=== PATIENT | female | born 1990 | race Caucasian/White ===

== ENCOUNTER 2016-07-02 05:27 | Inpatient (IN) | payer OTHER ==
[~2016-07-02 05:27] MED LIST: Citric Acid/Sodium Citrate Solution 30 ML Cup ONE; Citric Acid/Sodium Citrate Solution 30 ML Cup PO ONE; Lactated Ringers 2,000 ML ONE; Metoclopramide 10 MG/2 ML SDV IVPUSH ONE; Metoclopramide 10 MG/2 ML SDV ONE; Sodium Chloride 0.9% 10 ML Syringe FLUSH PRN; ceFAZolin 2 GM in Premix Bag 1 BAG IV ONE
[2016-07-02] MEDS: Lactated Ringers 1,000 ML IV SCH ×2 (06:20→06:58)
[2016-07-02] MEDS ORDERED: Pneumococcal Polyvalent-23 Vaccine 0.5 ML SDV IM ONE (06:25)
[2016-07-02] MEDS ORDERED: ceFAZolin 2 GM in Premix Bag 1 BAG IV ONE (06:45)
[2016-07-02] MEDS ORDERED: Citric Acid/Sodium Citrate Solution 30 ML Cup PO ONE (06:45)
[2016-07-02] MEDS ORDERED: Metoclopramide 10 MG/2 ML SDV IVPUSH ONE (06:45)
[2016-07-02] MEDS ORDERED: Bupivacaine 0.5% 30 ML SDV ONE (06:49)
[2016-07-02] MEDS ORDERED: Morphine PF 10 MG/10 ML SDV ONE (06:59)
--- NOTE | 2016-07-02 06:59 | HP ---
DATE OF ADMISSION: 07/02/2016 ADMISSION DIAGNOSES: Term intrauterine at 39 and 0/7 weeks gestational age, history of previous section, desire for repeat section. HISTORY OF PRESENT ILLNESS: The patient is a 25-year-old 4, para 2-0-1-2 white female, with an ALE of 07/09/2016, who was admitted at 39 and 0/7 weeks for elective repeat section. She has had 2 previous sections. With first one being done for failure to progress. Second one was a repeat section. The patient also had a demise. She is admitted for elective repeat section. The procedure, risks, benefits, options for care and followup were discussed in detail with the patient. She appears to understand and wishes to proceed. Consent is signed. COURSE: The patient is a 4, para 2-0-1-2. Her last menstrual period was 09/23/2015. Her is dated with an early ultrasound, which placed her due date at 07/09/2016 and supported by ultrasounds done on 12/01/2015 and 02/20/2016. She had her first visit at 8 weeks and 3 days on 12/01/2015. She was seen on a very regular basis during the course of . Weight increased from 191.6 to 210 pounds for approximately an 18 pound weight gain. Her fundal height growth was appropriate. Vital signs are stable throughout the course. PAST OBSTETRIC HISTORY: Includes cycles are somewhat less than regular. Last menstrual period somewhat uncertain at 09/23/2015. Her pregnancies include the followin. Male born 09/23/2011, at 41 weeks' gestational age after 24 hours of labor. Baby weighed 9 pounds 2 ounces-was [facility] at [facility] by primary section for failure to progress. Child's name is Josh. 2. Male born 04/23/2013, at 40 weeks' gestational age-8 pounds of weight. Repeat section. Child's name is Rey. course was positive for some anxiety. She declined genetic evaluation. She also had some depression. She had previous bout of contractions and concern for labor and was evaluated with a fibronectin assay, which was negative. The patient has a history of genital HSV, but did not have any outbreaks during the course of the . She is on valacyclovir 1 tablet-500 mg-twice daily. LABORATORY TESTING: In shows blood to be A positive. Negative antibody screen. Platelets at first visit were 199. She is rubella immune. RPR is nonreactive. Hepatitis B and HIV assays were negative. Her Chlamydia and gonorrhea assays were negative. Her 1-hour GTT was normal at 122. Platelets second trimester were 187. Hemoglobin was 12.2. Platelets on 04/09/2016, were 187. Group B strep screen was negative. ALLERGIES: Animal dander-no known drug allergies noted. CURRENT MEDICATIONS: 1. Acyclovir 500 mg p.o. b.i.d. for prophylaxis for HSV. 2. ProAir HFA aerosol inhaler 1 to 2 puffs q.4-6 hours p.r.n. for asthma. 3. vitamins daily. 4. Vitamin D 2000 units oral tablet 1 tablet daily. 5. Symbicort aerosol inhaler 2 puffs twice a day-rinse mouth after use. PAST MEDICAL HISTORY: 1. 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 2. depression with 2nd was on medications. 3. Frequent UTIs. 4. Eczema, hidradenitis, keratosis pilaris. 5. 6. Exercise-induced and seasonal allergy related asthma. PAST SURGICAL HISTORY: 1. x2 in 2011 and 2012. 2. [place] tooth extraction. FAMILY HISTORY: Mother has type 1 diabetes. Dad is alive, but is a smoker. One brother is alive and well. Maternal grandmother is alive, but with some fractures. Maternal grandfather secondary to RI at age 60. Paternal grandmother is alive, but with heart disease and is status post stent placement. Paternal grandfather . There is no bleeding, blood clotting, anesthesia or asthma problems in the family. No noted either. SOCIAL HISTORY: The patient is . is Richard. 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 They live in [place], [place]. She does not use any significant amounts of alcohol, drugs, or tobacco. REVIEW OF SYSTEMS: GENERAL: The patient has no concerns. Baby has been active. HEENT: Vision and hearing-no concerns. CARDIOVASCULAR: No chest pain, or exercise intolerance noted. RESPIRATORY: No shortness of breath or exercise intolerance noted. BREASTS: changes only. GI: Normal diet, bowel activity, no diarrhea, constipation, blood in the stool or mucus in the stool. : changes only. EXTREMITIES AND MUSCULOSKELETAL: No joint swelling, decreased range of movement or other problems noted. NEUROLOGICAL: No deficits noted. PHYSICAL EXAMINATION: VITAL SIGNS: On last evaluation in clinic on 07/01/2016, showed blood pressure 104/68, weight was 210, heart rate was 136. Her pre gravid weight was 191 per patient's history. Height is 5 feet 5 inches. Body mass index initially was 31.8. Weight gain during the course of the was approximately 18 to 19 pounds. GENERAL: The patient is a well-developed, well-nourished, pleasant, white female, in no acute distress. SKIN: Warm and dry without lesions. LUNGS: Clear with good breath sounds in all lung cornejo. CARDIOVASCULAR: Shows regular rate and rhythm. BREAST: Exam was done within first part of last year and was considered normal. ABDOMEN: Protuberant with , with fundal height of 38 cm. Baby in a vertex presentation. : Cervical exam last done on 06/07/2006, shows cervix to be 1 cm, 50% effaced, -3 station, mid position, soft. EXTREMITIES AND NEUROLOGICAL: Grossly within normal limits. ASSESSMENT: 1. Term intrauterine at 39 and 0/7 weeks gestational age upon admission for elective repeat section. The patient has had 2 previous section and desires repeat. The procedure, risks, benefits, alternatives of care including attempt at were all discussed in detail with the patient. She appears to understand and wishes to proceed. 2. The patient is in need of an MMR . 3. The patient has not had flu vaccination. 4. Her blood is A positive. 5. The patient plans to nurse. 6. Spinal block for anesthesia. PLAN: 1. Repeat lower segment transverse section through Pfannenstiel skin incision under spinal block. Procedure, risks, benefits, alternative and care, and followup were discussed in detail with the patient. She appears to understand, wishes to proceed and a consent is signed. 2. DVT prophylaxis with SCDs. 3. Infection prophylaxis with Ancef 2 g IV preop. 4. CBC, type and screen for preop evaluation. MMODAL /[id number]
[2016-07-02] MEDS ORDERED: Oxytocin 10 Units/1 ML SDV ONE (07:00)
[2016-07-02] MEDS ORDERED: Ondansetron 4 MG/2 ML SDV ONE (07:00)
--- NOTE | 2016-07-02 07:07 | PCM.PREANE ---
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 Respiratory: Reports: no symptoms Cardiovascular: Reports: no symptoms GI: Reports: no symptoms Other: Reports: none - PHYSICAL ASSESSMENT O2 Sat by Pulse Oximetry: 97 RR: 16 Vital Signs: Last Vital Signs Temp 37.3 C 07/02/16 06:21 Pulse 86 07/02/16 06:21 Resp 16 07/02/16 06:21 BP 122/69 07/02/16 06:21 Pulse Ox 97 07/02/16 06:21 Height: 1.65 m Weight: 95.254 kg NPO Status Date: 07/01/16 NPO Status Time: 10:30 ASA Class: 2 Mental Status: alert & oriented x3 Airway Class: Mallampati = 1 Dentition: Reports: normal dentition Thyro-Mental Finger Breadths: 3 Mouth Opening Finger Breadths: 5 ROM/Head Extension: full Respiratory Status: lungs clear to auscultation bilaterally Cardiovascular Status: regular rate & rhythm, normal S1, S2, no murmur, blood pressure WNL - LAB Values: Labs Reviewed - ALLERGIES Allergies/Adverse Reactions: Allergies Allergy/AdvReac Type Severity Reaction Status Date / Time cat dander Allergy Cough Verified 07/16/15 21:26 - BLOOD Blood Available: Yes - ANESTHESIA PLAN Medication Ordered: Antacids Preop Beta Flavio: No Anesthesia Type Planned: spinal - ACKNOWLEDGEMENTS Pt an appropriate candidate for the planned anesthesia: Yes Alternatives and risks of anesthesia discussed w pt/guardian: Yes Pt/Guardian understands and agree with anesthesia plan: Yes PreAnesthesia Questionnaire - Past Health History Medical/Surgical History: Denies Medical/Surgical History HEENT History: Reports: None, Other (see below) Other HEENT History: wears glasses Cardiovascular History: Reports: None Respiratory History: Reports: Asthma, Other (see below) Other Respiratory History: cat allergy uses inhaler. 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 breaks, see H&P - Past Surgical History Cardiovascular Surgical History: Reports: None Neurological Surgical History: Reports: None Dermatological Surgical History: Reports: None - SUBSTANCE USE Smoking Status *Q: Former Smoker Tobacco Use Within Last Twelve Months: Cigarettes Days Per Week of Alcohol Use: 1 Number of Drinks Per Day: 1 Total Drinks Per Week: 1 Recreational Drug Use History: No - CURRENT (IN HOUSE) MEDS Current Meds: Current Medications Lactated Ringer's (Ringers, Lactated) 1,000 mls @ 125 mls/hr IV ASDIRECTED [facility] Last Admin: 07/02/16 06:58 Dose: 125 mls/hr Oxytocin/Lactated Ringer's (Pitocin In Lr 10 Units/1,000 Ml) 10 units in 1,000 mls @ 100 mls/hr IV ASDIRECTED [facility] PRN Reason: Protocol Cefazolin Sodium/Dextrose 2 gm (/ Premix) 50 mls @ 100 mls/hr IV ONETIME ONE Stop: 07/02/16 07:14 Sodium Chloride (Saline Flush) 10 ml FLUSH ASDIRECTED PRN PRN Reason: Keep Vein Open Discontinued Medications Bupivacaine HCl (Marcaine 0.5%) Confirm Administered Dose 30 ml .ROUTE .STK-MED ONE Stop: 07/02/16 06:50 Citric Acid/Sodium Citrate (Bicitra Solution) 30 ml PO ONETIME ONE Stop: 07/01/16 21:11 Citric Acid/Sodium Citrate (Bicitra Solution) Confirm Administered Dose 30 ml .ROUTE .STK-MED ONE Stop: 07/02/16 03:14 Last Admin: 07/02/16 06:20 Dose: Not Given Citric Acid/Sodium Citrate (Bicitra Solution) 30 ml PO ONETIME ONE Stop: 07/02/16 06:46 Cefazolin Sodium/Dextrose 2 gm (/ Premix) 50 mls @ 100 mls/hr IV ONETIME ONE Stop: 07/01/16 21:39 Lactated Ringer's (Ringers, Lactated) Confirm Administered Dose 2,000 mls @ as directed .ROUTE .STK-MED ONE Stop: 07/02/16 03:15 Last Admin: 07/02/16 06:20 Dose: Not Given Metoclopramide HCl (Reglan) 10 mg IVPUSH ONETIME ONE Stop: 07/01/16 21:11 Metoclopramide HCl (Reglan) Confirm Administered Dose 10 mg .ROUTE .STK-MED ONE Stop: 07/02/16 03:15 Last Admin: 07/02/16 06:20 Dose: Not Given Metoclopramide HCl (Reglan) 10 mg IVPUSH ONETIME ONE Stop: 07/02/16 06:46 Morphine Sulfate (Duramorph Pf) Confirm Administered Dose 10 mg .ROUTE .STK-MED ONE Stop: 07/02/16 07:00 Ondansetron HCl (Zofran) Confirm Administered Dose 4 mg .ROUTE .STK-MED ONE Stop: 07/02/16 07:01 Oxytocin (Pitocin) Confirm Administered Dose 20 unit .ROUTE .STK-MED ONE Stop: 07/02/16 07:01 Pneumococcal Polyvalent Vaccine (Pneumovax 23) 0.5 ml IM .ONCE ONE Stop: 07/02/16 06:26
[2016-07-02] MEDS ORDERED: ePHEDrine/Normal Saline 25 MG/5 ML Syringe ONE (08:06)
[2016-07-02] MEDS ORDERED: OXYTOCIN IV SCH (08:15)
[2016-07-02] MEDS ORDERED: LACTATED RINGERS IV SCH (08:15)
[2016-07-02] MEDS ORDERED: Lactated Ringers 1,000 ML ONE ×2 (08:30)
[2016-07-02] MEDS ORDERED: Ketorolac 30 MG/ML SDV ONE (08:41)
--- NOTE | 2016-07-02 08:51 | PCM.POSTAN ---
POST ANESTHESIA ASSESSMENT - MENTAL STATUS Mental Status: alert - VITAL SIGNS Pulse Rate: 80 SaO2: 98 Resp Rate: 16 Blood Pressure: 107/57 Temperature: 37.3 C - RESPIRATORY Respiratory Status: respiratory rate WNL, airway patent, O2 saturation stable - CARDIOVASCULAR CV Status: pulse rate WNL, blood pressure stable - GASTROINTESTINAL GI Status: no symptoms - PAIN Pain Score: 0 - POST OP HYDRATION Hydration Status: adequate & stable - OBSERVATIONS Free Text/Narrative:: uneventful spinal anesthetic, patient happy with experience and thankful to staff for best spinal experience yet
[2016-07-02] MEDS ORDERED: diphenhydrAMINE 50 MG/ML SDV IVPUSH PRN ×2 (08:52→10:11)
[2016-07-02] MEDS ORDERED: Ondansetron 4 MG/2 ML SDV IVPUSH PRN (08:52)
--- NOTE | 2016-07-02 08:53 | PCM.OPNOTE ---
- General Post-Op/Procedure Note Date of Surgery/Procedure: 07/02/16 Operative Procedure(s): repeat lower uterine segment transverse section through Pfannenstiel skin incision Findings: baby is in vertex presentation, clear amniotic fluid. Placenta was on the posterior wall. Ovaries tubes and uterus appeared very normal and consistent with term . Cervix was 2 cm dilated and-adequate to allow egress of blood. Apgars were 9 and 9. Female born at 0809 hours. Weight was 7 lbs. 13 oz. Placenta delivered in a Reva presentation with expression. Umbilical cord had 3 vessels. Estimated blood loss was 500 cc. Pre Op Diagnosis: 39-1/7 week intrauterine , history of previous sections x2 with desire for repeat section Post-Op Diagnosis: Same with delivery of a viable 7 lbs. 13 oz. with Apgars of 9 and 9 at 0809 hours on 07/02/2016 Anesthesia Technique: Spinal Other Anesthesia Type: Marcaine 0.5%-20 cc locally in the Pfannenstiel incision Primary Surgeon: Rudolph Medina Secondary Surgeon: Jewel Baron Anesthesia Provider: Doreen Huang Fluid Replacement, Intraop: 1,800 Output, Urine Amount: 350 EBL in mLs: 500 Drain/Tube Comments:: Indwelling bladder catheter Complications: None Condition: Good Free Text/Narrative:: Intake & Output 07/01/16 07/02/16 07/02/16 22:59 06:59 14:59 Intake Total 1000 Balance 1000 surgeon duration: 24 minutes Consultations: None Specimens: None Procedure: Patient was transferred the room and placed in a sitting position. Spinal anesthesia was administered. After adequate anesthesia patient was placed in a supine position with a wedge under her right side to facilitate left lateral positioning. The patient was prepped and draped in usual fashion after [place] catheter was placed. The anesthetic was checked and found to be adequate. Marcaine 0.5%-20 cc was infiltrated into the section incision site. The Pfannenstiel skin incision was then made carried down to skin subcutaneous and fascial layers. The fascia was then undermined superiorly and inferiorly to allow for adequate operating room. The recti muscles were midline and preperitoneal fat was bluntly dissected. Peritoneal cavity was entered longitudinally. The vesicouterine peritoneum was then incised transversely and bladder flap was developed. Myometrium was incised transversely to the level of the amniotic sac. This incision was extended bilaterally in a blunt fashion. The amniotic sac was then ruptured resulting clear amniotic fluid. A hand is placed into the lower uterine segment and the baby's head was brought forth through the incision. The baby was completely delivered using with fundal pressure in a routine fashion. The nose and mouth were bulb suctioned. Baby's cord was clamped x2 cut and baby was handed off to attending credit collections analyst Dr. Paula. Placenta was expressed after cord blood was obtained. Uterus was then exteriorized to allow for easier closure. The cervix was assessed and found to be dilated adequately to allow egress of blood. The uterus was closed in 2 layers. The first layer a running locked suture of 0 Monocryl, the second layer a running locked vertical mattress suture of 0 Monocryl. small bleeder at a rate and the incision was controlled with a short running suture of 0 Monocryl. Hemostasis confirmed at this time. Sponge, instrument, needle counts are correct. The uterus was returned to the abdominal cavity and lateral gutters were cleared of blood. Once again sponge, needle counts are correct. The anterior abdominal wall was closed with a #1 PDS suture from angle to angle. The subcutaneous area was found to be free of any bleeders. Skin was closed with a running subcuticular stitch of 3-0 Monocryl in a vertical mattress suture fashion using a Maikol needle. It was further approximated with Dermabond Prineo skin mesh/glue. It should be noted that patient received 2 g of Ancef preoperatively for infection prophylaxis and had Pitocin infused after delivery of the placenta to facilitate uterine contraction. She also had sequential compression stockings in place for DVT prophylaxis.
[2016-07-02] MEDS ORDERED: Meperidine PF 50 MG/ML Syringe IVPUSH PRN (10:00)
[2016-07-02] MEDS ORDERED: ePHEDrine 50 MG/ML SDV IVPUSH PRN (10:11)
[2016-07-02] MEDS ORDERED: Dextrose 5%-Lactated Ringers 1,000 ML IV SCH (10:11)
[2016-07-02] MEDS ORDERED: Ondansetron 4 MG/2 ML SDV IV PRN (10:11)
[2016-07-02] MEDS ORDERED: Dextrose 5%-0.45% NaCl 1,000 ML IV SCH (10:11)
[2016-07-02] MEDS ORDERED: Lanolin 100% Cream 7 GM Tube TOP PRN (10:11)
[2016-07-02] MEDS ORDERED: Naloxone 0.4 MG/ML SDV IVPUSH PRN (10:11)
[2016-07-02] MEDS: Docusate Sodium 100 MG Cap PO PRN ×2 (11:25→22:38)
[2016-07-02] MEDS: Simethicone 80 MG Tab.Chew PO PRN ×2 (12:56→22:38)
[2016-07-02] MEDS: Ibuprofen 800 MG Tab PO SCH ×2 (14:52→22:38)
[2016-07-03] MEDS: Acetaminophen/oxyCODONE 325-5 MG Tab PO PRN ×4 (04:46→20:12)
--- NOTE | 2016-07-03 06:09 | PCM.SN ---
- Free Text/Narrative Note: The patient is doing well as far and. Has some discomfort. Average lochia. Nursing was going well. Patient is afebrile, vital signs are stable. Lungs are clear with good breath sounds in all cornejo. Cardiovascular exam shows regular rate. Abdomen is soft, uterus is just below the umbilicus. Incision appears to be healing well. Extremities show minimal edema. Assessment: Post operative day one doing well. Plan: Routine cares. Home tomorrow. CBC today.
[2016-07-03] MEDS: Ibuprofen 800 MG Tab PO SCH ×3 (06:51→23:17)
[2016-07-03] MEDS: Docusate Sodium 100 MG Cap PO PRN (13:06)
[2016-07-03] MEDS: Simethicone 80 MG Tab.Chew PO PRN ×2 (13:48→20:12)
[2016-07-04] MEDS: Simethicone 80 MG Tab.Chew PO PRN (04:35)
[2016-07-04] MEDS: Acetaminophen/oxyCODONE 325-5 MG Tab PO PRN ×2 (04:35→11:47)
[2016-07-04] MEDS: Docusate Sodium 100 MG Cap PO PRN (04:35)
[2016-07-04] MEDS: Ibuprofen 800 MG Tab PO SCH ×2 (06:41→14:50)
--- NOTE | 2016-07-04 08:25 | PCM.DCSUM1 ---
Discharge Summary - Hospital Course Free Text/Narrative:: Alli is a 25-year-old 3 now para 3003 white female who is admitted on 07/02/2016 at 39-1/7 weeks gestational age for elective repeat section. She had 2 previous sections and desired repeat section. Please see admission history and physical and operative report. she delivered on the morning of 07/02/2016. She delivered the baby in a vertex presentation, clear amniotic fluid. Placenta was on the posterior wall. Ovaries tubes and uterus appeared very normal and consistent with term . Cervix was 2 cm dilated and-adequate to allow egress of blood. Apgars were 9 and 9. Female infant born at 0809 hours. Weight was 7 lbs. 13 oz. Placenta delivered in a Reva presentation with expression. Umbilical cord had 3 vessels. Estimated blood loss was 500 cc. Postoperatively patient was done well. She is nursing without problems. Ambulating well, has minimal lochia. Abdominal pain is well controlled with ibuprofen and Percocet. Her vital signs were stable and she has been afebrile. She is desiring to be discharged today. - Discharge Data Discharge Date: 07/04/16 Discharge Disposition: Home, Self-Care 01 Condition: Good - Patient Summary/Data Operative Procedure(s) Performed: repeat lower uterine segment transverse section through Pfannenstiel skin incision - Patient Instructions Diet: Regular Diet as Tolerated (Nursing diet was increased calcium and calories as discussed with the patient.) Activity: As Tolerated (No intercourse or tampons until seen back. No lifting greater than 15 pounds, driving a car or baths x1 week. Patient may shower.) Driving: Do Not Drive Showering/Bathing: May Shower Wound/Incision Care: Keep Operative Site/Wound Site Clean and Dry Notify Provider of: Fever, Increased Pain, Swelling and Redness, Drainage, Nausea and/or Vomiting - Discharge Plan Home Medications: Home Meds Albuterol [Proair HFA] 1 - 2 puff PO ASDIRECTED PRN 07/02/16 [History] Budesonide/Formoterol [Symbicort 160-4.5 MCG] 1 puff INH BID 07/02/16 [History] Cholecalciferol (Vitamin D3) [Vitamin D3] 2,000 unit PO DAILY 07/02/16 [History] PNV95/Ferrous Fumarate/FA [ Tablet] 1 each PO DAILY 07/02/16 [History] Acetaminophen/oxyCODONE [Percocet 325-5 MG] 2 tab PO Q4H PRN #30 tablet [Rx] Ibuprofen [IJD: Ibuprofen] 600 mg PO Q4H PRN #30 tablet 07/04/16 [Rx] Patient Handouts: Smoking Cessation, Tips for Success, [id number], Smoking Hazards Referrals: Rudolph Medina MD [Physician] - (Return to clinic-Dr. Medina-4 weeks-[facility] [place]) - Discharge Summary/Plan Comment DC Time >30 min.: No Discharge Summary/Plan Comment: Discharge instructions: 1. Discharge home 2. Regular, high-fiber, nursing diet. Activity and followup discussed in detail. 3. Precautions given concern increased pain, bleeding, temperature, signs/ symptoms of DVT/PE. 4. Medications per home medication was presented, discussed with and given to the patient. 5. Return to clinic-Dr. Medina-[facility] [place]-4 weeks. Diagnosis: 1. 39-1/7 week intrauterine -delivered 2. History of previous section x2-desire for repeat section Condition: Good - Patient Data Vitals - Most Recent: Last Vital Signs Temp 36.7 C 07/04/16 04:00 Pulse 77 07/04/16 04:00 Resp 16 07/04/16 04:00 BP 117/63 07/04/16 04:00 Pulse Ox 97 07/04/16 04:00 Weight - Most Recent: 95.254 kg Med Orders - Current: Current Medications Diphenhydramine HCl (Benadryl) 25 mg IVPUSH Q6H PRN PRN Reason: Itching or Nausea Docusate Sodium (Colace) 100 mg PO Q12H PRN PRN Reason: Constipation Last Admin: 07/04/16 04:35 Dose: 100 mg Emollient Ointment (Lansinoh Hpa) 0 gm TOP ASDIRECTED PRN PRN Reason: Sore Nipples Ephedrine Sulfate (Ephedrine Sulfate) 5 mg IVPUSH SEECOMMENT PRN PRN Reason: Other Dextrose/Sodium Chloride (Dextrose 5%-1/2 Ns) 1,000 mls @ 125 mls/hr IV ASDIRECTED RAJI Last Admin: 07/02/16 16:16 Dose: 125 mls/hr Ibuprofen (Motrin) 800 mg PO Q8H RAJI Last Admin: 07/04/16 06:41 Dose: 800 mg Naloxone HCl (Narcan) 0.1 mg IVPUSH SEECOMMENT PRN PRN Reason: Respiratory Depression Ondansetron HCl (Zofran) 4 mg IV Q4H PRN PRN Reason: Nausea/Vomiting Last Admin: 07/02/16 10:49 Dose: 4 mg Oxycodone/Acetaminophen (Percocet 325-5 Mg) 2 tab PO Q4H PRN PRN Reason: Pain (moderate 4-6) Last Admin: 07/04/16 04:35 Dose: 1 tab Simethicone (Simethicone) 80 mg PO Q6H PRN PRN Reason: Gas Last Admin: 07/04/16 04:35 Dose: 80 mg Discontinued Medications Bupivacaine HCl (Marcaine 0.5%) Confirm Administered Dose 30 ml .ROUTE .STK-MED ONE Stop: 07/02/16 06:50 Last Admin: 07/02/16 08:04 Dose: 20 ml Citric Acid/Sodium Citrate (Bicitra Solution) 30 ml PO ONETIME ONE Stop: 07/01/16 21:11 Last Admin: 07/02/16 07:06 Dose: 30 ml Citric Acid/Sodium Citrate (Bicitra Solution) Confirm Administered Dose 30 ml .ROUTE .STK-MED ONE Stop: 07/02/16 03:14 Last Admin: 07/02/16 06:20 Dose: Not Given Citric Acid/Sodium Citrate (Bicitra Solution) 30 ml PO ONETIME ONE Stop: 07/02/16 06:46 Last Admin: 07/02/16 10:19 Dose: Not Given Diphenhydramine HCl (Benadryl) 25 mg IVPUSH Q6H PRN PRN Reason: pruritis Stop: 07/02/16 20:00 Ephedrine Sulfate (Ephedrine In Ns) Confirm Administered Dose 25 mg .ROUTE .STK- MED ONE Stop: 07/02/16 08:07 Lactated Ringer's (Ringers, Lactated) 1,000 mls @ 125 mls/hr IV ASDIRECTED [facility] Last Admin: 07/02/16 06:58 Dose: 125 mls/hr Oxytocin/Lactated Ringer's (Pitocin In Lr 10 Units/1,000 Ml) 10 units in 1,000 mls @ 100 mls/hr IV ASDIRECTED [facility] PRN Reason: Protocol Cefazolin Sodium/Dextrose 2 gm (/ Premix) 50 mls @ 100 mls/hr IV ONETIME ONE Stop: 07/01/16 21:39 Last Admin: 07/02/16 10:18 Dose: Not Given Lactated Ringer's (Ringers, Lactated) Confirm Administered Dose 2,000 mls @ as directed .ROUTE .STK-MED ONE Stop: 07/02/16 03:15 Last Admin: 07/02/16 06:20 Dose: Not Given Cefazolin Sodium/Dextrose 2 gm (/ Premix) 50 mls @ 100 mls/hr IV ONETIME ONE Stop: 07/02/16 07:14 Last Admin: 07/02/16 10:18 Dose: Not Given Lactated Ringer's (Ringers, Lactated) Confirm Administered Dose 1,000 mls @ as directed .ROUTE .STK-MED ONE Stop: 07/02/16 08:31 Lactated Ringer's (Ringers, Lactated) Confirm Administered Dose 1,000 mls @ as directed .ROUTE .STK-MED ONE Stop: 07/02/16 08:31 Dextrose/Lactated Ringer's (Dextrose 5%-Lactated Ringers) 1,000 mls @ 125 mls/ hr IV ASDIRECTED [facility] Stop: 07/02/16 18:10 Last Admin: 07/02/16 10:25 Dose: 125 mls/hr Ketorolac Tromethamine (Toradol) Confirm Administered Dose 30 mg .ROUTE .STK- MED ONE Stop: 07/02/16 08:42 Meperidine HCl (Demerol) 12.5 mg IVPUSH ONETIME PRN PRN Reason: shivering Stop: 07/03/16 10:01 Metoclopramide HCl (Reglan) 10 mg IVPUSH ONETIME ONE Stop: 07/01/16 21:11 Last Admin: 07/02/16 07:06 Dose: 10 mg Metoclopramide HCl (Reglan) Confirm Administered Dose 10 mg .ROUTE .STK-MED ONE Stop: 07/02/16 03:15 Last Admin: 07/02/16 06:20 Dose: Not Given Metoclopramide HCl (Reglan) 10 mg IVPUSH ONETIME ONE Stop: 07/02/16 06:46 Last Admin: 07/02/16 10:19 Dose: Not Given Morphine Sulfate (Duramorph Pf) Confirm Administered Dose 10 mg .ROUTE .STK-MED ONE Stop: 07/02/16 07:00 Ondansetron HCl (Zofran) Confirm Administered Dose 4 mg .ROUTE .STK-MED ONE Stop: 07/02/16 07:01 Ondansetron HCl (Zofran) 4 mg IVPUSH ONETIME PRN PRN Reason: Nausea/Vomiting Stop: 07/02/16 20:00 Oxytocin (Pitocin) Confirm Administered Dose 20 unit .ROUTE .STK-MED ONE Stop: 07/02/16 07:01 Pneumococcal Polyvalent Vaccine (Pneumovax 23) 0.5 ml IM .ONCE ONE Stop: 07/02/16 06:26 Sodium Chloride (Saline Flush) 10 ml FLUSH ASDIRECTED PRN PRN Reason: Keep Vein Open *Q Meaningful Use (DIS) - VTE *Q VTE Criteria *Q: - Stroke *Q Stroke Criteria *Q: - AMI *Q AMI Criteria *Q:
--- NOTE | 2016-07-04 10:56 | PCM48HPAN ---
Post Anesthesia Note - EVALUATION WITHIN 48HRS OF ANESTHETIC Vital Signs in Normal Range: Yes Patient Participated in Evaluation: Yes Respiratory Function Stable: Yes Airway Patent: Yes Cardiovascular Function Stable: Yes Hydration Status Stable: Yes Pain Control Satisfactory: Yes Nausea and Vomiting Control Satisfactory: Yes Mental Status Recovered: Yes
[2016-07-04 14:16] VITALS: BP 123/80
== END 2016-07-04 15:30 | disposition home or self-care (01) | DRG 766 ==
LOC: JD.OB 05:27
PROVIDERS: ADMIT Obstetrics & Gynecology; ATTEND Obstetrics & Gynecology
PROC: 10D00Z1 Extraction of Products of Conception, Low, Open Approach (ICD-10-PCS; principal; 2016-07-02)
PROC: 3E0234Z Introduction of Serum, Toxoid and Vaccine into Muscle, Percutaneous Approach (ICD-10-PCS; 2016-07-03)
DX: O34.211 Maternal care for low transverse scar from previous cesarean delivery (principal); N85.8 Other specified noninflammatory disorders of uterus; Z3A.39 39 weeks gestation of pregnancy; Z37.0 Single live birth; Z23 Encounter for immunization
CPT/HCPCS: 01961; 36415; 85025; 90732; 94762; A9270-GY; J1885; J2270; J2405; J2590; J2765; J7042; J7050; J7120